=== PATIENT | male | born 1990 | race Hispanic/Latino ===

== ENCOUNTER → 2016-12-08 | Day surgery (SDC) | payer OTHER ==
[2016-12-08] VITALS (8 sets, daily range): BP systolic 100–134; BP diastolic 45–81; PULSE 46–60; RESP 10–18; O2SAT 97–100
[~2016-12-08] VITALS: Ht 175.3 cm; Wt 85.5 kg
[~2016-12-08] MED LIST: Atropine 0.4 mg/mL Inj IVPUSH PRN; Bupivacaine-MPF 0.5% 30 mL Inj INFILTRATE ONE; CeFAZolin 2 Gm/50 mL D5W Duplex Bag IV ONE; CeFAZolin 2 Gm/50 mL D5W IV Premix IV ONE; Dexamethasone 4 mg/mL Inj ONE; EPHEDrine Sulfate 50 mg/mL Inj IVPUSH PRN; HYDROmorphone 1 mg/mL Inj IVPUSH PRN; Labetalol 5 mg/mL 20 mL Inj IV PRN; Lactated Ringer's 1,000 ML IV SCH; Lactated Ringer's 500 ML IV PRN; MetoCLOpramide 5 mg/mL 2 mL Inj IVPUSH PRN; MetoCLOpramide 5 mg/mL 2 mL Inj ONE; NAPR220C11 PO; Ondansetron 2 mg/mL 2 mL Inj IVPUSH PRN; Ondansetron 2 mg/mL 2 mL Inj ONE; Phenylephrine 10,000 mCg/mL Inj IVPUSH PRN; Propofol 10,000 mCg/mL 20 mL Inj ONE; fentaNYL-PF 50 mCg/mL 2 mL Inj IVPUSH PRN; fentaNYL-PF 50 mCg/mL 2 mL Inj ONE; oxyCODONE-Acetamin 5-325 mg Tablet PO PRN
[2016-12-08] MEDS: Lactated Ringer's 1,000 ML IV SCH ×2 (14:15→16:07)
--- NOTE | 2016-12-08 16:29 | PCM.HPANE ---
Patient Data Surgeon Admitting Provider: Attending Provider:Erickson Rabago MD Primary Care Physician:Camryn Other Provider:Dez Sommer Anesthesia Reason for Visit Left 5TH Metacarpal Phalanx Fracture Ht/WT & BMI Height (Feet): 5 Height (Inches): 9 Weight (Kilograms): 87.8 Body Mass Index 28.00 Allergies Coded Allergies: Cultivated Oat Pollen (Verified Allergy, Unknown, 12/08/16) pepper (Verified Allergy, Unknown, 12/08/16) Past Anesthesia History Anesthesia History: Denies:: Abnormal Airway, Anesthesia Reactions, Difficult Intubation, Fam Anesthesia Reaction, Fam Malignant Hypertherm, Malignant Hyperthermia Diabetes History Hx Diabetes?: No MRSA MRSA: No Medications Reported Medications Naproxen Sodium (Aleve)220 Mg [id number] Mg PO BID 12/07/16 History History of ENT Problems?: No HEENT History: Positive for:: Dysphagia (enlarged tonsills) Denies:: Abnormal Airway Difficult Intubation Hearing Problem Sinus Problem TMJ Denture Type: None Teeth Condition: Within Normal Limits Hx of Heart Problems?: No Cardiovascular History: Denies:: AICD Abdominal Aortic Aneurism Atrial Fibrillation Cardiac Surgery Chest Pain Congestive Heart Failure Coronary Artery Disease Edema Heart Murmur Hypertension Irregular Heartbeat Pacemaker Peripheral Vascular Rheumatic Fever Thrombophlebitis Valvular Heart Disease Hx of Respiratory Problem?: No Respiratory History: Positive for:: Pneumonia (as infant) Denies:: Tuberculosis Use of C-PAP Machine Hx Neurologic Problems?: No Neurological History: Denies:: Alzheimer's Disease CVA Dementia Dizziness Headaches Parkinson's Disease Seizures TIA Hx of GI Problems?: No Hx of Problems?: No HX of Peritoneal Dialysis: No Male Hx: Denies:: Prostate Problems Scrotal Mass Testicular Surgery Skin History: Denies:: History Skin Disorders? Pressure Ulcers Hx Musculoskeletal Problems?: Yes Musculoskeletal History: Positive for:: Back Injury (sports related discomfort ) Musculoskeletal Trauma (fx finger) Denies:: Degenerative Joint Joint Replacement Osteoarthritis Rheumatoid Arthritis Hx of Psycho/Social Problems?: No Hx Surgeries?: Yes (wisdom teeth removed x3 teeth a few months ago) Hx Any Other Health Problems?: No Other History: Denies:: Cancer Endocrine Disease Hospitalization Thyroid Disease History Blood Transfusions: Positive for:: Accept Blood Products? Denies:: Blood Transfusions Hx Diabetes: No Hx Alcohol Use: Yes (rare)Hx Substance Use: NoHave You Smoked inLast 12 mo: No Stop/Bang S-Snoring: Do You Snore Loudly: No T-Tired: feel tired, fatigued: No O-Obsered: Observed not breath: No P-Blood Pressure: treated: No B- Body Mass Index > 35 kg/m2: No A- Age over 50: No N- Neck Large Circumference: No G- Gender Male: Yes NIMA Total Score: 1 Risk Assessment Category Category 1A: Patient has history of documented sleep apnea, and HAS NOT received any narcotic, sedative or anesthesia administration during this stay. Category 1B: Patient has history of documented sleep apnea, and HAS received any narcotic , sedative or anesthesia administration during this stay Category 2: Patient has SUSPECTED Obstructive Sleep Apnea, and HAS received any narcotic , sedative or anesthesia administration during this stay. Category 3: Patient has SUSPECTED Obstructive Sleep Apnea and HAS NOT received narcotic, sedative or anesthesia administration during this stay. Category 4: Outpatient in Procedural Areas with known sleep apnea or who screen positive for High Risk via the STOP/BANG questionnaire. Exam Exam General Appearance: Alert, Oriented X3, Cooperative, No Acute Distress HEENT/AIRWAY: MP 2, Neck Movement (from), Mouth Opening (3 fbmo) Lungs: Clear to Auscultation, Normal Air Movement Heart: Exam Unremarkable, Regular Rate/Rhythm, No Murmurs/Rubs/Gallops Plan Impression Patient chart reviewed, patient interviewed and anesthestic plan with risks, benefits, and alternatives discussed, and informed consent obtained. ASA Physical Status: ASA1 Normal Healthy Anesthetic Plan: GA Bene/Risks/Altern/Consents: Yes HP Complete Prior to Induction: Yes Pranav Washburn MD Dec 08, 2016 14:06
--- NOTE | 2016-12-08 17:35 | PCM.ANEP1 ---
Post Anesthesia PACU Phase 1 Assessment Vital Signs Vital Signs Date Time Temp Pulse Resp B/P Pulse Ox O2 Delivery O2 Flow Rate FiO2 12/08/16 17:30 46 12 100/50 100 Simple Mask 7 12/08/16 17:26 36.7 47 10 100/45 100 Simple Mask 7 12/08/16 14:09 36.3 52 16 108/57 99 Room Air Anesthetic Administered: GA Level of Alertness: Awake, talking LERNER's with Equal Strength: Yes Pain: No Nausea or Vomiting: No CV Function & Hydration Stable: Yes Airway Device: na Oxygen Delivery: Simple Mask Lungs: Clear to Auscultation, Normal Air Movement Dermatome Level: Full Sensation PACU Phase 2 Assessment Complications: No Follow up Care: N/A Patient Instructions Provided: N/A Pranav Washburn MD Dec 08, 2016 17:35
--- NOTE | 2016-12-08 18:38 | OP ---
[address] [address] OPERATIVE REPORT PATIENT: ROBBIE GALLEGOS : 1990 MR#: [id number] ADMIT: 12/08/2016 JOB ID: [id number] DATE OF SURGERY: 12/08/2016 PREOPERATIVE DIAGNOSIS(ES): Left little finger proximal phalangeal displaced fracture. ICD 10 code S62.617A. POSTOPERATIVE DIAGNOSIS(ES): Left little finger proximal phalangeal displaced fracture. ICD 10 code S62.617A. PROCEDURE: Closed reduction, percutaneous pinning, left little finger proximal phalangeal fracture. CPT code 89486. SURGEON: Erickson Rabago MD. SHELL FISHERMAN: Jacques Gomez PA-C. Jacques Gomez was an integral portion of the procedure helping to maintain forearm position in order to facilitate reduction of the finger fracture. The patient had very large muscles and hand positioning was slightly difficult. ANESTHESIA: General plus metacarpal nerve block performed for postoperative analgesia. Sponge and needle count correct. Sponge and needle count correct. IMPLANTS UTILIZED: Two 0.45 K-wires. ESTIMATED BLOOD LOSS: None. DRAINS: None. COMPLICATIONS: None. SPECIMEN: No specimen to pathology. INDICATIONS: This is a 26-year-old male who was playing rugby and sustained an apex volarly angulated left little finger proximal phalangeal fracture. PROCEDURE: After appropriate time-out was called, the arm was elevated, exsanguinated, tourniquet inflated to 250 mmHg. I performed a closed reduction of the fracture and confirmed good position of the fracture on image intensification. I placed one 0.45 K-wire through the skin down to the bone in a distal ulnar position and directed it to a proximal radial position across the fracture site. A second K-wire was directed from distal radial in a crossed fashion across the fracture to a proximal ulnar direction. Image intensification confirmed good position of the K-wires. The fracture was reduced. The pins were cut just below the skin for easy retrieval and removal. Care was taken to protect surrounding neurovascular structures. Prior to release of the tourniquet, I performed a metacarpal nerve block with 0.5% plain Marcaine. X-rays were taken. Tourniquet was released. The patient had good capillary refill. No sutures were required. Xeroform dry sterile bulky dressing was applied and patient was placed in a well-padded ulnar gutter splint. Care was taken to rest assured that there was normal rotation of the finger after the procedure. The patient was taken to recovery room in stable condition. Sponge and needle count correct. No complications. PLAN: The patient will be seen by Hand Therapy later this week and they will make him a hand splint and let him begin some gentle range of motion. 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 We will see him back in followup in two weeks. K-wires will remain in place for about six weeks. CC: [facility]
--- NOTE | 2016-12-08 18:47 | DRSVH ---
PROCEDURE: X-RAY FINGERS, TWO VIEWS LEFT INDICATIONS: LEFT 5TH DIGIT, SENT FROM OR TECHNIQUE: AP hand, 2 views of the fifth finger(s) acquired. COMPARISON: [facility], CR, XR FINGER(S) LT 2VW, 12/07/2016, 11:30. FINDINGS: Intraoperative images demonstrate pin fixation of the fifth proximal phalanx. Hardware is intact and there is good anatomic alignment. IMPRESSION: Fifth proximal phalanx pin fixation as above. Dictated by: Leyla Silver M.D. on 12/08/2016 at 18:45 Approved by: Leyla Silver M.D. on 12/08/2016 at 18:45
== END | disposition home or self-care (01) ==
LOC: SAS 13:51
PROVIDERS: ATTEND Orthopaedic Surgery
DX: S62.647A Nondisplaced fracture of proximal phalanx of left little finger, initial encounter for closed fracture (principal); R13.10 Dysphagia, unspecified; W03.XXXA Other fall on same level due to collision with another person, initial encounter; Y93.63 Activity, rugby; Y92.328 Other athletic field as the place of occurrence of the external cause; Z87.891 Personal history of nicotine dependence